=== PATIENT | male | born 1945 | race Caucasian/White ===

== ENCOUNTER 2022-11-30 07:19 | Day surgery (SDC) | payer MEDICARE, OTHER ==
[~2022-11-30] VITALS: Ht 172.7 cm; Wt 97.1 kg
[~2022-11-30 07:19] MED LIST: LIDOcaine 1% 30ml preserv. free vial SQ STA
[2022-11-30] MEDS ORDERED: albumin 25% 100mL bottle x 1 IV PRN (07:45)
[2022-11-30 07:50] VITALS: BP 141/60
[2022-11-30] MEDS ORDERED: Vita Fusion PO (08:17)
[2022-11-30] MEDS ORDERED: CETI10TA15 PO (08:17)
[2022-11-30] MEDS ORDERED: CHOL20002 PO (08:17)
[2022-11-30] MEDS ORDERED: EZET10TA6 PO (08:17)
[2022-11-30] MEDS ORDERED: ALBU90AE INH (08:17)
[2022-11-30] MEDS ORDERED: IPRA3AMP31 IH (08:17)
[2022-11-30] MEDS ORDERED: PRAV80TA3 PO (08:17)
[2022-11-30] MEDS ORDERED: Potassium PO (08:17)
[2022-11-30] MEDS ORDERED: METH-339 PO (08:17)
[2022-11-30] MEDS ORDERED: FLUT1DIS INH (08:17)
[2022-11-30] MEDS ORDERED: CYAN100087 PO (08:17)
[2022-11-30] MEDS ORDERED: VIT1CAPS46 PO (08:17)
[2022-11-30] MEDS ORDERED: LOSA50TA3 PO (08:17)
[2022-11-30] MEDS ORDERED: HEPARIN SQ (08:17)
[2022-11-30] MEDS ORDERED: CETI-90 PO (08:17)
[2022-11-30] MEDS ORDERED: SPIR1TAB PO (08:17)
--- NOTE | 2022-11-30 08:45 | NUR ---
Limited US only, procedure canceled. Not enough fluid to drain per Brian WALLACE.
== END 2022-11-30 09:30 | disposition home or self-care (01) ==
LOC: SSTAY O 07:19
PROVIDERS: ATTEND Radiology Vascular & Interventional Radiology
DX: K70.31 Alcoholic cirrhosis of liver with ascites (principal); Z53.8 Procedure and treatment not carried out for other reasons; J44.9 Chronic obstructive pulmonary disease, unspecified; D64.9 Anemia, unspecified; I10 Essential (primary) hypertension; J96.21 Acute and chronic respiratory failure with hypoxia; I48.91 Unspecified atrial fibrillation; G47.33 Obstructive sleep apnea (adult) (pediatric); M19.90 Unspecified osteoarthritis, unspecified site; E78.5 Hyperlipidemia, unspecified; N40.0 Benign prostatic hyperplasia without lower urinary tract symptoms; E66.01 Morbid (severe) obesity due to excess calories; Z68.32 Body mass index [BMI] 32.0-32.9, adult; Z87.01 Personal history of pneumonia (recurrent); Z98.890 Other specified postprocedural states; Z79.899 Other long term (current) drug therapy; Z85.05 Personal history of malignant neoplasm of liver
CPT/HCPCS: 76705; A6258; A6402